=== PATIENT | female | born 1950 | race Caucasian/White ===

== ENCOUNTER 2017-08-30 09:18 | Emergency (ER) | payer BC ==
[~2017-08-30] VITALS: Ht 160 cm; Wt 74.8 kg
[~2017-08-30 09:18] MED LIST: ASPIRIN EC81 MG PO; CITRACAL + BON1 EACH PO; FRESHKOTE15 ML OP; LEVOTHYROXINE100 MCG PO; LISINOPRIL30 MG PO; OMEGA 3 1,0001 EACH PO; SYSTANE GEL EYE10 ML OP; ZYRTEC10 MG PO
--- NOTE | 2017-08-30 14:55 | EKG ---
[facility] [address] [facility] [place] [address] Signed Sinus bradycardia with occasional premature ventricular complexes Otherwise normal ECG No previous ECGs available Confirmed by KAVON SALAZAR MD ([id number] on 08/30/2017 2:55:42 PM Electronically Signed By: KAVON SALAZAR MD 08/30/17 1455 PATIENT NAME: LUKE HOPE Electrocardiogram DATE OF : 48 PHYSICIAN: KAVON SALAZAR MD REPORT #: [id number] REPORT IS CONFIDENTIAL AND NOT TO BE RELEASED WITHOUT AUTHORIZATION
== END 2017-08-30 11:21 | disposition home or self-care (01) ==
LOC: ED 09:18
DX: R07.89 Other chest pain (principal); I10 Essential (primary) hypertension; Z91.011 Allergy to milk products; Z91.018 Allergy to other foods; Z88.8 Allergy status to other drugs, medicaments and biological substances; Z79.899 Other long term (current) drug therapy
CPT/HCPCS: 71045; 80053; 84484; 85025; 93005; 93010; 99285

== ENCOUNTER 2018-03-19 06:33 | Emergency (ER) | payer BC ==
[~2018-03-19] VITALS: Ht 160 cm; Wt 74.8 kg
[2018-03-19] MEDS ORDERED: AMLODIPINE BES2.5 MG PO (06:55)
== END 2018-03-19 08:00 | disposition home or self-care (01) ==
LOC: ED 06:33
PROC: 0HQGXZZ Repair Left Hand Skin, External Approach (ICD-10-PCS; principal; 2018-03-19)
DX: S61.211A Laceration without foreign body of left index finger without damage to nail, initial encounter (principal); W26.8XXA Contact with other sharp object(s), not elsewhere classified, initial encounter; I10 Essential (primary) hypertension; E03.9 Hypothyroidism, unspecified; Z91.048 Other nonmedicinal substance allergy status; Z88.8 Allergy status to other drugs, medicaments and biological substances; Z91.011 Allergy to milk products; Z79.899 Other long term (current) drug therapy
CPT/HCPCS: 12001; 99282-25

== ENCOUNTER 2021-08-22 00:38 | Emergency (ER) | payer MEDICARE, OTHER ==
[~2021-08-22] VITALS: Ht 160 cm; Wt 67.0 kg
[~2021-08-22 00:38] MED LIST changes: +AMLODIPINE BES2.5 MG PO; +LOW DOSE ASPIRI81 MG PO; +LUTEIN40 MG PO; +VITAMIN B COMP1 EAC1 PO
== END 2021-08-22 01:08 | disposition home or self-care (01) ==
LOC: ED 00:38
DX: T15.91XA Foreign body on external eye, part unspecified, right eye, initial encounter (principal); I10 Essential (primary) hypertension; E03.9 Hypothyroidism, unspecified; Z91.011 Allergy to milk products; Z91.09 Other allergy status, other than to drugs and biological substances; Z88.8 Allergy status to other drugs, medicaments and biological substances; Z79.82 Long term (current) use of aspirin; Z79.899 Other long term (current) drug therapy
CPT/HCPCS: 99283